=== PATIENT | female | born 1995 | race Caucasian/White ===

== ENCOUNTER 2017-10-23 19:56 | Inpatient (IN) | payer OTHER ==
[~2017-10-23] VITALS: Ht 154.9 cm; Wt 73.9 kg
[2017-10-23] MEDS ORDERED: Verotin-Gr Cap1 EACH (20:04)
[2017-10-23 20:18] LABS: BASOPHILS ABSOLUTE AUTO 0.01 K/mm3 (0.00-0.23); BASOPHILS PERCENT AUTO 0 % (0-2); EOSINOPHILS PERCENT AUTO 2 % (0-6); Hemoglobin 13.2 g/dL (11.5-16.0); IMMATURE GRAN ABSOLUTE AUTO 0.04 K/mm3 (0.00-0.10); IMMATURE GRAN PERCENT AUTO 0 % (0-1); LYMPHOCYTES PERCENT AUTO 18 % (21-46); MONOCYTES ABSOLUTE AUTO 1.03 K/mm3 (0.16-1.47); MONOCYTES PERCENT AUTO 9 % (4-13); Mean Corpuscular HGB 32.2 pg (26.0-34.0); Mean Corpuscular HGB Conc 33.8 g/dL (31.5-36.5); Mean Corpuscular Volume 95 fL (80-100); Mean Platelet Volume 12.2 fL (9.1-12.4); NEUTROPHILS ABSOLUTE AUTO 8.59 K/mm3 (1.96-9.15); NEUTROPHILS PERCENT AUTO 72 % (41-73); Platelet Count 128 K/mm3 (150-400); RDW Coefficient Variation 13.8 % (11.7-14.2); RDW Standard Deviation 47.6 fL (35.1-46.3); White Blood Cell Count 11.97 K/mm3 (4.00-11.30)
[2017-10-24 13:29] LABS: Hematocrit 35.1 % (33.0-51.0); Mean Corpuscular HGB 32.1 pg (26.0-34.0); Mean Corpuscular HGB Conc 34.2 g/dL (31.5-36.5); Mean Corpuscular Volume 94 fL (80-100); Mean Platelet Volume 11.8 fL (9.1-12.4); Platelet Count 112 K/mm3 (150-400); RDW Coefficient Variation 13.2 % (11.7-14.2); RDW Standard Deviation 45.3 fL (35.1-46.3); Red Blood Cell Count 3.74 M/mm3 (3.80-5.20); White Blood Cell Count 14.81 K/mm3 (4.00-11.30)
== END 2017-10-25 14:45 | disposition home or self-care (01) | DRG 775 ==
LOC: BC 19:56 → NUR 10-25 08:08 → BC 10-25 08:10
PROVIDERS: Advanced Practice Midwife; Obstetrics & Gynecology
PROC: 10E0XZZ Delivery of Products of Conception, External Approach (ICD-10-PCS; principal; 2017-10-24)
PROC: 3E0P7VZ Introduction of Hormone into Female Reproductive, Via Natural or Artificial Opening (ICD-10-PCS; 2017-10-24)
DX: O80 Encounter for full-term uncomplicated delivery (principal); Z37.0 Single live birth; Z3A.38 38 weeks gestation of pregnancy; Z88.6 Allergy status to analgesic agent; Z88.8 Allergy status to other drugs, medicaments and biological substances
CPT/HCPCS: 36415; 85025; 85027; 86900; 86901; J2210; J2405; J2590; J7120

== ENCOUNTER → 2018-05-10 | Outpatient (CLI) | payer OTHER ==
[~2018-05-10] MED LIST: Verotin-Gr Cap1 EACH
[2018-05-11 10:19] LABS: Candida species (DNA Probe) Negative (NEGATIVE); G. vaginalis (DNA Probe) Positive (NEGATIVE); T. vaginalis (DNA Probe) Negative (NEGATIVE)
[2018-05-18 10:09] LABS: CHLAMYDIA BY NAA Negative (Negative); GONOCOCCUS BY NAA Negative (Negative); TRICH VAG BY NAA Negative (Negative)
[2018-05-21 06:54] LABS: DIAGNOSIS: CommentC
== END | disposition home or self-care (01) ==
LOC: LAB SHORT 16:28 → LAB 16:28
PROVIDERS: Advanced Practice Midwife
DX: Z11.3 Encounter for screening for infections with a predominantly sexual mode of transmission (principal); N76.0 Acute vaginitis; L98.9 Disorder of the skin and subcutaneous tissue, unspecified
CPT/HCPCS: 87070; 87205; 87480; 87491; 87510; 87529; 87591; 87660; 87661; G0123